=== PATIENT | female | born 1970 | race Hispanic/Latino ===

== ENCOUNTER 2016-06-12 09:06 | Outpatient (CLI) | payer OTHER ==
--- NOTE | 2016-06-12 09:49 | Mammography Report ---
RIGHT DIGITAL DIAGNOSTIC MAMMOGRAM : 06/12/16 09:06:00 CLINICAL: Recalled for asymmetry. COMPARISON:04/22/16 screening FINDINGS: ML and spot compression CC views were performed. Satisfactory effacement of the previously described asymmetry on the spot view. The lateral view is negative. IMPRESSION: Negative Mammogram. BI-RADS CATEGORY: 1 -- Negative RECOMMENDATION: Routine mammographic screening in one year. ACR BI-RADS MAMMOGRAPHIC CODES: 0 = Needs additional imaging evaluation; 1 = Negative; 2 = Benign; 3 = Probably benign; 4 = Suspicious; 5 = Malignant; 6 = Known biopsy-proven malignancy COMMENT: 1. Dense breast tissue, i.e., adenosis, fibrocystic changes, etc., may obscure an underlying neoplasm. 2. Approximately 10% of cancers are not detected with mammography. 3. A negative mammography report should not delay biopsy if a clinically suspicious mass is present. COMMENT: Patient follow-up letters are generated via our [employer] application.
== END 2016-06-12 09:07 | disposition home or self-care (01) ==
LOC: SPVWC 09:06
PROVIDERS: ATTEND Nurse Practitioner Women's Health
DX: R92.2 Inconclusive mammogram (principal)
CPT/HCPCS: G0206-RT

== ENCOUNTER 2017-07-02 09:45 | Outpatient (CLI) | payer OTHER ==
--- NOTE | 2017-07-04 11:02 | Mammography Report ---
BILATERAL DIGITAL SCREENING MAMMOGRAM with CAD : 07/02/17 09:45:00 CLINICAL: Routine screening. COMPARISON:06/12/16 right mammogram and 04/22/16 and 03/23/15 bilateral mammograms FINDINGS: The breasts are heterogeneously dense, which may obscure small masses.A right inferior asymmetry on the MLO view is more prominent than on the last exam but is less prominent than on the 03/23/15 exam. There is no correlation on the CC view. This area was worked up on the last mammogram and was negative. No mass, architectural distortion or suspicious calcifications. IMPRESSION: No mammographic evidence of malignancy. A benign summation density of the inferior right breast. BI-RADS CATEGORY: 2 -- Benign RECOMMENDATION: Routine mammographic screening in one year. COMMENT: Patient follow-up letters are generated by our [employer] application.
== END 2017-07-02 09:46 | disposition home or self-care (01) ==
LOC: SPVWC 09:45
PROVIDERS: ATTEND Obstetrics & Gynecology
DX: Z12.31 Encounter for screening mammogram for malignant neoplasm of breast (principal)
CPT/HCPCS: 77067

== ENCOUNTER 2018-07-08 09:19 | Outpatient (CLI) | payer OTHER ==
--- NOTE | 2018-07-08 10:41 | Mammography Report ---
BILATERAL DIGITAL SCREENING MAMMOGRAM with CAD: 07/08/18 09:19:00 CLINICAL: Routine screening. COMPARISON:07/02/17 and 06/12/16 FINDINGS: The breasts are heterogeneously dense, which may obscure small masses. No mass, architectural distortion or suspicious calcifications. IMPRESSION: No mammographic evidence of malignancy. BI-RADS CATEGORY: 1 - - Negative RECOMMENDATION: Routine mammographic screening in one year. COMMENT: Patient follow-up letters are generated by our [email or web address] application.
== END 2018-07-08 09:20 | disposition home or self-care (01) ==
LOC: SPVWC 09:19
PROVIDERS: ATTEND Obstetrics & Gynecology
DX: Z12.31 Encounter for screening mammogram for malignant neoplasm of breast (principal)
CPT/HCPCS: 77067